=== PATIENT | female | born 1975 | race Caucasian/White ===

== ENCOUNTER 2023-11-04 08:11 | Emergency (ER) | payer OTHER ==
[~2023-11-04] VITALS: Ht 154.9 cm; Wt 54.5 kg
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
[2023-11-04] MEDS ORDERED: MAGNESIUM HYDROXIDE/AL HYDROX 30 ML CUP PO ONE (09:15)
[2023-11-04 13:20] VITALS: BP 114/77
== END 2023-11-04 13:12 | disposition home or self-care (01) ==
LOC: ED 08:11
DX: F32.A Depression, unspecified (principal); F43.0 Acute stress reaction; Z59.00 Homelessness unspecified
CPT/HCPCS: 99283